=== PATIENT | female | born 1960 | race Caucasian/White ===

== ENCOUNTER 2020-03-10 09:09 | Outpatient (REF) | payer OTHER, SELFPAY ==
--- NOTE | 2020-03-10 | XR_ITS ---
EXAMINATION: XR CHEST 2 VIEWS CLINICAL INFORMATION: Question right pleural effusion or pneumothorax. COMPARISON: Prior chest radiographs, most recently 02/09/2020. TECHNIQUE: Frontal and lateral views of the chest were obtained. FINDINGS: The heart, great vessels, pulmonary vasculature and mediastinum are normal. The lungs show no focal infiltrate or pneumothorax. There is persistent moderate to marked right mid and lower lung field scar/subsegmental atelectasis, and very mild lateral left base linear scar/subsegmental atelectasis is seen. There is a very small right pleural effusion. No left pleural effusion is seen. There is no acute osseous abnormality. IMPRESSION: 1. A very small right pleural effusion is seen. 2. There is right mid and bilateral lower lung field platelike scar/subsegmental atelectasis. This is a similar in extent to prior on the right and is newly seen on the left. 3. No pneumothorax is presently seen.
== END 2020-03-10 09:10 | disposition home or self-care (01) ==
LOC: HO.XRAY 09:09
PROVIDERS: PCP Internal Medicine; Visit Provider Surgery
DX: Z48.813 Encounter for surgical aftercare following surgery on the respiratory system (principal); J90 Pleural effusion, not elsewhere classified; J93.9 Pneumothorax, unspecified; Z87.891 Personal history of nicotine dependence
CPT/HCPCS: 71046; 99211

== ENCOUNTER 2020-04-04 07:39 | Outpatient (REF) | payer OTHER, SELFPAY ==
--- NOTE | 2020-04-04 | PFT_ITS ---
Forced vital capacity normal. FEV1 moderately reduced. CVC69-90 is markedly reduced. MVV moderately reduced. Postbronchodilator therapy, there has been slight improvement in FEV1, but significant improvement in [id number] and MVV are noted. Total lung capacity and residual volume normal. Diffusion capacity is markedly reduced. CONCLUSION: Moderately severe obstructive airway disorder. Minimal improvement after bronchodilator therapy is noted. Diffusion capacity is decreased somewhat out of proportion to the other values and this may be due to pulmonary emphysema, possible pulmonary vascular disease, or interstitial lung disease. Clinical correlation recommended. MD JASMYNE Price/MODL / [id number]
== END 2020-04-04 07:40 | disposition home or self-care (01) ==
LOC: HO.RESP 07:39
PROVIDERS: Visit Provider Hospitalist
DX: J98.4 Other disorders of lung (principal)
CPT/HCPCS: 94060; 94727; 94729

== ENCOUNTER → 2020-04-14 15:17 | Outpatient (BNVA) | payer OTHER, SELFPAY | PROVIDERS: PCP Internal Medicine; Visit Provider Hospitalist | DX: Z76.89 Persons encountering health services in other specified circumstances (principal) ==

== ENCOUNTER 2020-05-05 09:03 | Outpatient (REF) | payer OTHER, SELFPAY ==
--- NOTE | 2020-05-05 09:35 | XR_ITS ---
EXAMINATION: XR CHEST CLINICAL INFORMATION: Pleurisy. COMPARISON: 03/10/2020 chest radiographs. TECHNIQUE: 2 views of the chest were obtained. FINDINGS: Mild bibasilar linear markings are seen without significant change. There is minimal blunting of the costophrenic angles. The lungs otherwise clear. The heart and mediastinal structures are unremarkable. XR/XR chest 2V IMPRESSION: Mild bibasilar linear atelectasis versus scarring without significant change. Minimal blunting of the costophrenic angles is not safely changed as well likely represents pleural scarring without significant change. No acute cardiopulmonary process.
[2020-05-05 10:13] LABS: Hematocrit 35.2 % (37-47); Imm Gran Abs Auto 0.01 X10*3/uL (0.00-0.03); Imm Gran Pct Auto 0.3 % (0.0-0.4); MANUAL DIFF FLAG SCAN; Mean Platelet Volume 11.6 fL (9.4-12.3); PLT CLUMP 1; SCAN SMEAR FLAG 1
[2020-05-05 10:15] LABS: Basophils Percent Auto 0.5 % (0-2); Eosinophils Absolute Auto 0.1 X10*3/uL (0.0-0.4); Eosinophils Percent Auto 2.1 % (0-4); Lymphocytes Absolute Auto 1.1 X10*3/uL (1.2-4.9); Lymphocytes Percent Auto 28.7 % (20-40); Mean Corpuscular HGB Conc 34.1 g/dl (31.0-35.0); Mean Corpuscular Hemoglobin 34.8 pg (27.0-33.0); Monocytes Absolute Auto 0.4 X10*3/uL (0.1-1.2); Monocytes Percent Auto 11.1 % (2-11); Neutrophils Absolute Auto 2.2 X10*3/uL (2.0-8.3); Neutrophils Percent Auto 57.3 % (45-73); Platelet Count 141 X10*3/uL (160-400); Red Blood Count 3.45 X10*6/uL (4.20-5.50); Red Cell Distribution Width 13.5 % (11.0-16.0); White Blood Count 3.8 X10*3/uL (4.8-10.8)
[2020-05-05 10:42] LABS: SLIDE REVIEW VERIFIED
[2020-05-05 11:15] LABS: Erythrocyte Sedimentation Rate 4 MM/HR (0-20)
[2020-05-07 14:32] LABS: Anti Nuclear Antibody Screen NEGATIVE (NEGATIVE)
[2020-05-08 15:11] LABS: Cyclic Citrullinated Peptide <16 UNITS
[2020-05-09 11:56] LABS: Immunoglobulin G Subclass 1 750 mg/dL (382-929); Immunoglobulin G Subclass 2 205 mg/dL (241-700); Immunoglobulin G Subclass 3 29 mg/dL (22-178); Immunoglobulin G Subclass 4 33.3 mg/dL (4-86); Immunoglobulin G Total 1130 mg/dL (600-1540)
[2020-05-11 04:52] LABS: Angiotensin Converting Enzyme 29 U/L (9-67)
== END 2020-05-05 09:04 | disposition home or self-care (01) ==
LOC: HO.LAB 09:03
PROVIDERS: PCP Internal Medicine; Visit Provider Hospitalist
DX: R09.1 Pleurisy (principal)
CPT/HCPCS: 36415; 71046; 82164; 82784; 85025; 85652; 86038; 86039; 86200; U0003

== ENCOUNTER 2020-06-27 15:04 | Outpatient (REF) | payer OTHER, SELFPAY ==
--- NOTE | 2020-06-27 15:06 | CT_ITS ---
EXAMINATION: CT CHEST WITHOUT CONTRAST CLINICAL INFORMATION: Pleurisy COMPARISON: Previous chest x-rays most recent April 2020 TECHNIQUE: Multidetector volumetric CT imaging of the chest was done. Axial MIP volume rendering provided. Sagittal and coronal reformatted images were obtained. This CT examination was performed using dose optimization techniques as appropriate, variously including the following: *Automated exposure control *Adjustment of mA and/or kV according to patient size (this includes techniques or standardized protocols for targeted exams where dose is matched to indication/reason for exam; i.e. extremities or head) *Use of iterative reconstruction technique DLP: 149 mGy-cm FINDINGS: LUNGS: There are innumerable small 1 to 2 mm semisolid or groundglass attenuation upper lobe nodules. These have a peribronchial distribution and may be related to airways disease or respiratory bronchiolitis if the patient is a smoker. There is mild biapical pleural and parenchymal scarring. There is a 2 mm right upper lobe nodule axial image 180 series 5. There is a 4 mm peripheral or subpleural left upper lobe nodule adjacent to the mediastinum is aortic arch axial image 208 series 5. There is a 2 mm lingular nodule axial image 359 series 5. There is a 4 mm peripheral left lower lobe nodule axial image 534 series 5. There is a 2 mm peripheral or subpleural left lower lobe nodule axial image 516 series 5. There is a 2 mm probably calcified left lower lobe nodule axial image 500 series 5. There is a 2 mm peripheral right lower lobe nodule axial image 460 series 5. There is scarring or subsegmental atelectasis in the right lower lobe. MEDIASTINUM: The thyroid gland is unremarkable. There are no enlarged hilar or mediastinal lymph nodes. The heart is slightly enlarged. Particular, the left atrium appears enlarged. There is mild coronary artery calcification. There is no pericardial PLEURA: There is no pleural effusion. No pleural mass or thickening. AXILLA: No lymphadenopathy. UPPER ABDOMEN: There is a 1 cm lesion exophytic to the upper pole of the left kidney. This is not compatible with a simple cyst. Hounsfield units without contrast measure 23 axial image 62 series 3. This uncertain whether this represents a complex cyst or solid lesion. OSSEOUS STRUCTURES: There are degenerative changes of the spine. There is slight cortical thickening or periosteal reaction of the right anterior lateral eighth and ninth ribs questionable for changes related to trauma. CT/CT chest wo con IMPRESSION: No pleural effusion or pleural thickening. Slight cortical thickening of the adjacent right anterior eighth and ninth ribs questionable for changes related to trauma. This could be further evaluated with bone scan if clinically indicated. Small pulmonary nodules, largest measuring 4 mm in the left upper and lower lobe. Innumerable small heterogeneous or semisolid upper lobe nodules, question representing respiratory bronchiolitis or airways disease. Enlarged heart. In particular, the left atrium. This could be better evaluated with echocardiogram. 1 cm exophytic lesion in the upper pole of the left kidney not compatible with a simple cyst. It is uncertain whether this represents a complex cyst or solid lesion. Follow-up renal ultrasound recommended.
== END 2020-06-27 15:05 | disposition home or self-care (01) ==
LOC: HO.CT 15:04
PROVIDERS: Visit Provider Hospitalist
DX: R09.1 Pleurisy (principal); R91.8 Other nonspecific abnormal finding of lung field
CPT/HCPCS: 71250

== ENCOUNTER → 2020-07-14 15:37 | Outpatient (BNVA) | payer OTHER, SELFPAY | PROVIDERS: PCP Internal Medicine; Visit Provider Hospitalist ==

== ENCOUNTER 2020-08-09 07:36 | Outpatient (REF) | payer OTHER, SELFPAY ==
--- NOTE | ~2020-08-09 | US_ITS ---
EXAMINATION: US ABDOMEN COMPLETE CLINICAL INFORMATION: This orders of kidney and ureter. COMPARISON: None. TECHNIQUE: Real-time imaging of the abdominal viscera. FINDINGS: PANCREAS: Normal. ABDOMINAL AORTA: The proximal, mid, and distal segments are normal in caliber. INFERIOR VENA CAVA: Visualized portions are normal. LIVER: The liver is mildly enlarged. The liver contour is slightly lobulated. Parenchymal echogenicity is normal. There is a small 5 x 5 x 4 mm left hepatic lobe cyst with small septation. No additional cyst or solid mass seen. There is trace free fluid in the left lobe. No intrahepatic ductal dilatation seen. GALLBLADDER: There is echogenic nonmobile sludge and echogenic stones in the fundus. There is a echogenic stone in the wall of the gallbladder, likely calcification. There are nonmobile nonechogenic lesion along the inner gallbladder wall, likely adenomyomatosis. COMMON BILE DUCT: Normal in caliber measuring 0.19, 0.6 cm in diameter. RIGHT KIDNEY: Normal. No hydronephrosis. No renal calculi or focal parenchymal lesions. The kidney measures 10.8 cm in maximum dimension. LEFT KIDNEY: There is anechoic cyst in the upper pole measuring 1.5 x 1.2 x 1.0 cm and a midpole cyst measuring 0.5 x 0.3 x 0.3 cm. No hydronephrosis. No renal calculi or focal parenchymal lesions. The kidney measures 11.8 cm in maximum dimension. SPLEEN: The spleen is enlarged and measures 13.3 cm cm in maximum dimension. FREE FLUID: None. US/US abdomen complete IMPRESSION: Echogenic sludge, gallstones and adenomyomatosis. There is a nonmobile echogenic calcification or impacted stone. No pericholecystic fluid collection. Left kidney 2 cysts. Mild hepatosplenomegaly.
== END 2020-08-09 07:37 | disposition home or self-care (01) ==
LOC: HO.US 07:36
PROVIDERS: Visit Provider Hospitalist
DX: R10.9 Unspecified abdominal pain (principal); N28.9 Disorder of kidney and ureter, unspecified
CPT/HCPCS: 76700

== ENCOUNTER → 2020-11-17 15:12 | Outpatient (BNVA) | payer OTHER, SELFPAY | PROVIDERS: PCP Internal Medicine; Visit Provider Hospitalist ==

== ENCOUNTER 2020-12-15 14:51 | Outpatient (REF) | payer OTHER, SELFPAY ==
[2020-12-15 16:03] LABS: MANUAL DIFF FLAG NO
[2020-12-15 16:06] LABS: Basophils Percent Auto 0.4 % (0-2); Eosinophils Absolute Auto 0.1 X10*3/uL (0.0-0.4); Eosinophils Percent Auto 1.1 % (0-4); Hematocrit 38.5 % (37-47); Hemoglobin 13.2 g/dl (12.0-16.0); Imm Gran Abs Auto 0.02 X10*3/uL (0.00-0.03); Imm Gran Pct Auto 0.4 % (0.0-0.4); Lymphocytes Absolute Auto 1.3 X10*3/uL (1.2-4.9); Lymphocytes Percent Auto 22.9 % (20-40); Mean Corpuscular HGB Conc 34.3 g/dl (31.0-35.0); Mean Corpuscular Hemoglobin 32.1 pg (27.0-33.0); Mean Corpuscular Volume 93.7 fL (80-98); Mean Platelet Volume 10.8 fL (9.4-12.3); Monocytes Absolute Auto 0.8 X10*3/uL (0.1-1.2); Monocytes Percent Auto 14.3 % (2-11); Neutrophils Absolute Auto 3.4 X10*3/uL (2.0-8.3); Neutrophils Percent Auto 60.9 % (45-73); Platelet Count 191 X10*3/uL (160-400); Red Blood Count 4.11 X10*6/uL (4.20-5.50); Red Cell Distribution Width 12.6 % (11.0-16.0); White Blood Count 5.5 X10*3/uL (4.8-10.8)
[2020-12-15 16:20] LABS: Anion Gap 14 (12-20); Blood Urea Nitrogen 13 mg/dL (9-16); Calcium 9.9 mg/dL (8.4-10.2); Carbon Dioxide 27 mmol/L (22-29); Chloride 96 mmol/L (96-108); Estimated Glomerular Filt Rate > 60; Glucose Random 97 mg/dL (60-115); Sodium 133 mmol/L (135-145)
[2020-12-15 16:25] LABS: Troponin-I High Sensitivity < 3.5 ng/L (<3.5-17.0)
[2020-12-15 17:13] LABS: D Dimer < 200 NG/ML
[2020-12-15 17:37] LABS: Erythrocyte Sedimentation Rate 4 MM/HR (0-20)
== END 2020-12-15 14:52 | disposition home or self-care (01) ==
LOC: HO.LAB 14:51
PROVIDERS: PCP Internal Medicine; Visit Provider Hospitalist
DX: J41.0 Simple chronic bronchitis (principal); R06.00 Dyspnea, unspecified; R09.1 Pleurisy; R91.8 Other nonspecific abnormal finding of lung field; R07.81 Pleurodynia
CPT/HCPCS: 36415; 80048; 84484; 85025; 85379; 85652

== ENCOUNTER 2020-12-19 09:34 | Emergency (ER) | payer OTHER, SELFPAY ==
--- NOTE | ~2020-12-19 | XR_ITS ---
EXAMINATION: XR CHEST CLINICAL INFORMATION: Chest pain COMPARISON: CT chest 06/27/2020, chest radiographs 05/05/2020, 03/10/2020. TECHNIQUE: Portable upright AP view of the chest was obtained. FINDINGS: Lungs are clear. There is no airspace consolidation, pneumothorax, pleural reaction, or effusion. The heart is within normal size. The vascularity is normal. The hilar and mediastinal contours and visualized bony structures are unremarkable. XR/XR chest 1V IMPRESSION: Unremarkable examination.
[2020-12-19 10:11] VITALS: BP 169/76; PULSE 61; TEMP 35.7; O2SAT 98; BMI 25.4
--- NOTE | 2020-12-19 12:31 | ECG_ITS ---
Test Reason : CHEST PAIN Blood Pressure : / mmHG Vent. Rate : 059 BPM Atrial Rate : 059 BPM P-R Int : 200 ms QRS Dur : 086 ms QT Int : 412 ms P-R-T Axes : 053 002 -05 degrees QTc Int : 407 ms Sinus bradycardia Nonspecific ST and T wave abnormality Abnormal ECG No previous ECGs available Referred By: Sawyer Joseph Electronically Signed By:Devonte Taylor
--- NOTE | 2020-12-19 12:40 | ED.CHESTPAIN ---
HPI - Chest Pain General Chief Complaint: Chest Pain Stated Complaint: back & chest pressure, dizziness Time Seen by Provider: 12/19/20 12:31 Source: patient and family Mode of arrival: ambulatory Limitations: no limitations History of Present Illness HPI narrative: 60 years old female former smoker diagnosed with COPD, patient follows Dr. Young ([employer] business development officer), patient also underwent Davinci right-sided decortication of the right lung by Dr. Hackett. Patient always feel pressure in the mid chest and her upper back has been evaluated by Dr. Young for her symptoms thought to be secondary to COPD, patient currently is on prednisone. Patient went to work today when she felt dizziness and lightheadedness with a her usual feeling of mid chest pressure and upper back pressure. Reportedly patient during her last evaluation by the [employer] business development officer patient was hypoxic with exertion patient was offered supplemental oxygen to use at home but patient declined supplemental oxygen supply. Related Data Home Medications Medication Instructions Recorded Confirmed acetaminophen 500 mg tablet 1,000 mg PO Q6H 03/04/20 12/15/20 atenolol 50 mg-chlorthalidone 25 1 tab PO DAILY 03/04/20 12/15/20 mg tablet fluoxetine 10 mg tablet 10 mg PO DAILY 03/04/20 12/15/20 sennosides 8.6 mg tablet 17.2 mg PO BEDTIME PRN 03/04/20 12/15/20 Previous Rx's Medication Instructions Recorded gabapentin 300 mg capsule 300 mg PO BEDTIME 30 Days #30 cap 07/14/20 prednisone 20 mg tablet 20 mg PO DAILY 10 Days #15 tab 11/17/20 bupropion HCl 75 mg tablet 150 mg PO BID 30 Days #120 tab 11/21/20 fluticasone fur. 100 mcg-umeclid 1 inh INHALATION DAILY 30 Days #60 12/14/20 62.5 mcg-vilant 25 mcg ea inhalat.powder doxycycline hyclate 100 mg capsule 100 mg PO BID 10 Days #20 cap 12/15/20 prednisone 20 mg tablet 20 mg PO DAILY 10 Days #15 tab 12/15/20 Allergies Allergy/AdvReac Type Severity Reaction Status Date / Time No Known Allergies Allergy Verified 12/17/20 23:24 Review of Systems Review of Systems: All other systems are reviewed and are negative Constitutional: Reports as per HPI and Reports no additional constitutional complaints Eyes: Reports as per HPI and Reports no additional eye complaints Reports system reviewed and no additional complaints, except as documented Cardiovascular: Reports as per HPI and Reports no additional cardiovascular complaints Respiratory: Reports as per HPI and Reports no additional respiratory complaints Gastrointestinal: Reports as per HPI and Reports no additional gastrointestinal complaints Genitourinary: Reports no additional female genitourinary complaints Musculoskeletal: Reports no additional musculoskeletal complaints Skin/Breast: Reports system reviewed and no additional complaints, except as docu Psychiatric: Reports no additional psychiatric complaints Endocrine: Reports no additional endocrine complaints Hematologic/Lymphatic: Reports no additional hematologic/lymphatic complaints Allergic/Immunologic: Reports no additional allergic/immunologic complaints Reports system reviewed and no additional complaints, except as documented and Reports Abnormal speech present [facility] Past Medical History Medical History Abdominal discomfort Cardiomegaly COPD (chronic obstructive pulmonary disease) Dyspnea Kidney lesion Pleuritic chest pain Pleuritis Pulmonary nodules Family History Family History Sister Lung cancer Ovarian cancer Father Heart disease Social History Social History Cigarette Packs Per Day: 0.5 Cigarettes Per Day: 10.0 Years Smoked: 45 Advance Directives: No Advance Directives Information Provided: No Physical Exam Vital Signs: Vital Signs: Last Vital Signs Temp 96.2 F L 12/19/20 10:11 Pulse 64 12/19/20 14:00 Resp 18 12/19/20 13:53 BP 130/75 12/19/20 14:00 Pulse Ox 98 12/19/20 13:53 Body Mass Index 25.4 Vital signs have been reviewed as appeared to be correct. Blood pressure normal. Heart rate normal. Respiration rate normal. Temperature normal. Oxygen saturation normal. Appearance: Alert. Oriented X3. No acute distress. Anxious Head: Normal external exam. Normocephalic. Atraumatic. No [place] signs noted. No raccoon eyes noted Eyes: PERRLA. EOMI. Conjunctiva and sclera normal. Eyelids normal. ENT: TM's Normal. Pharynx normal. Uvula midline. Moist mucous membranes. No trismus noted. No drooling noted. No muffled voice noted. Neck: Normal inspection. Neck supple. FROM. No adenopathy. Thyroid Normal. No meningeal signs. No neck mass noted. CVS: Normal heart rate and rhythm. Heart sound normal. No murmurs noted. Pulses normal throughout. Respiratory: No respiratory distress. Painless inspiration. Breath sounds normal. No wheezes/rales/rhonchi noted. Chest nontender. No accessory muscle usage noted or decreased air movement noted. Abdomen: Soft and nontender. Bowel sounds normal in all 4 quadrants. No distention noted. No organomegaly noted. No visible injury noted. Back: No CVA tenderness. Full range of motion noted. Skin: Skin warm and dry. Normal skin color. Normal skin turgor. No rashes/lesions/lacerations noted. Extremities: No lower extremity edema. Extremities exhibit normal range of motion. Extremities nontender. Neuro: Oriented X 3. No motor deficit. No sensory deficit. Reflexes normal. Course Course Course Narrative: Assessment and plan. 60-year-old female came in with chronic chest pressure, history of COPD, dizziness. EKG/troponin unremarkable except for nonspecific T-wave inversion, chest pain felt to be noncardiac and more than likely secondary to the chronic COPD. Patient feels better with 500 cc bolus of normal saline. Patient was instructed to go home good oral hydration, and consider supplemental oxygen that was recommended by Dr. Young. MDM - Chest Pain Lab Data Attestation: I reviewed the patient's lab results. Result diagrams: 12/19/20 12:43 12/19/20 12:43 Labs: Lab Results 12/19/20 12/19/20 12/19/20 Range/Units 12:43 12:43 12:43 WBC 5.2 (4.8-10.8) X10*3/uL RBC 4.14 L (4.20-5.50) X10*6/uL Hgb 13.4 (12.0-16.0) g/dl Hct 38.9 (37-47) % MCV 94.0 (80-98) fL MCH 32.4 (27.0-33.0) pg MCHC 34.4 (31.0-35.0) g/dl RDW 12.6 (11.0-16.0) % Plt Count 194 (160-400) X10*3/uL MPV 10.1 (9.4-12.3) fL Immature Gran % (Auto) 0.6 H (0.0-0.4) % Neut % (Auto) 77.1 H (45-73) % Lymph % (Auto) 16.9 L (20-40) % [place] % (Auto) 5.2 (2-11) % Eos % (Auto) 0.0 (0-4) % Baso % (Auto) 0.2 (0-2) % Lymph # (Auto) 0.9 L (1.2-4.9) X10*3/uL [place] # (Auto) 0.3 (0.1-1.2) X10*3/uL Eos # (Auto) 0.0 (0.0-0.4) X10*3/uL Baso # (Auto) 0.0 (0.0-0.2) X10*3/uL Abs Immat Gran (auto) 0.03 (0.00-0.03) X10*3/uL Absolute Neuts (auto) 4.0 (2.0-8.3) X10*3/uL Absolute Nucleated RBC 0.000 (0.0-0.012) X10*3/uL Nucleated RBC % (auto) 0.0 (0.0-0.2) /100WBC Sodium 133 L (135-145) mmol/L Potassium 3.9 (3.3-5.1) mmol/L Chloride 95 L (96-108) mmol/L Carbon Dioxide 27 (22-29) mmol/L Anion Gap 15 (12-20) BUN 12 (9-16) mg/dL Creatinine 0.70 (0.5-1.4) mg/dL Estim Creat Clear Calc 93.1 Estimated GFR > 60 Random Glucose 135 H D (60-115) mg/dL Calcium 10.0 (8.4-10.2) mg/dL Total Bilirubin 0.8 (0.0-1.0) mg/dL Direct Bilirubin 0.3 (0.0-0.5) mg/dL AST 19 (5-31) U/L ALT 17 (0-31) U/L Alkaline Phosphatase 62 (39-117) U/L Troponin I High Sens < 3.5 (<3.5-17.0) ng/L B-Natriuretic Peptide (<100) pg/mL Total Protein 7.6 (6.5-8.0) g/dL Albumin 4.5 (3.5-5.0) g/dL Lipase 16 (8-78) U/L 12/19/20 Range/Units 12:43 WBC (4.8-10.8) X10*3/uL RBC (4.20-5.50) X10*6/uL Hgb (12.0-16.0) g/dl Hct (37-47) % MCV (80-98) fL MCH (27.0-33.0) pg MCHC (31.0-35.0) g/dl RDW (11.0-16.0) % Plt Count (160-400) X10*3/uL MPV (9.4-12.3) fL Immature Gran % (Auto) (0.0-0.4) % Neut % (Auto) (45-73) % Lymph % (Auto) (20-40) % [place] % (Auto) (2-11) % Eos % (Auto) (0-4) % Baso % (Auto) (0-2) % Lymph # (Auto) (1.2-4.9) X10*3/uL [place] # (Auto) (0.1-1.2) X10*3/uL Eos # (Auto) (0.0-0.4) X10*3/uL Baso # (Auto) (0.0-0.2) X10*3/uL Abs Immat Gran (auto) (0.00-0.03) X10*3/uL Absolute Neuts (auto) (2.0-8.3) X10*3/uL Absolute Nucleated RBC (0.0-0.012) X10*3/uL Nucleated RBC % (auto) (0.0-0.2) /100WBC Sodium (135-145) mmol/L Potassium (3.3-5.1) mmol/L Chloride (96-108) mmol/L Carbon Dioxide (22-29) mmol/L Anion Gap (12-20) BUN (9-16) mg/dL Creatinine (0.5-1.4) mg/dL Estim Creat Clear Calc Estimated GFR Random Glucose (60-115) mg/dL Calcium (8.4-10.2) mg/dL Total Bilirubin (0.0-1.0) mg/dL Direct Bilirubin (0.0-0.5) mg/dL AST (5-31) U/L ALT (0-31) U/L Alkaline Phosphatase (39-117) U/L Troponin I High Sens (<3.5-17.0) ng/L B-Natriuretic Peptide 267 H (<100) pg/mL Total Protein (6.5-8.0) g/dL Albumin (3.5-5.0) g/dL Lipase (8-78) U/L Imaging Data Chest x-ray: Radiologist's impression: Unremarkable examination. ECG Data ECG #1: Interpretation: Sinus bradycardia at 59 beats per minutes, normal interval, nonspecific T-wave changes in V2, V3, no old EKG to compare. Discharge Plan Discharge Clinical Impression: Dizziness Patient Disposition: Home, Self-Care Instructions: Dizziness (ED) Prescriptions: No Action bupropion HCl 75 mg tablet 150 mg PO BID 30 Days Qty: 120 RF: 11 Trelegy Ellipta 100-62.5-25 mcg blister with device 1 inh inhalation DAILY 30 Days Qty: 60 RF: 11 fluoxetine 10 mg tablet 10 mg PO DAILY RF: 0 atenolol-chlorthalidone 50-25 mg tablet 1 tab PO DAILY RF: 0 acetaminophen 500 mg tablet 1,000 mg PO Q6H RF: 0 sennosides 8.6 mg tablet 17.2 mg PO BEDTIME PRN (Reason: constipation) RF: 0 gabapentin 300 mg capsule 300 mg PO BEDTIME 30 Days Qty: 30 RF: 6 prednisone 20 mg tablet 20 mg PO DAILY 10 Days Qty: 15 RF: 0 doxycycline hyclate 100 mg capsule 100 mg PO BID 10 Days Qty: 20 RF: 0 prednisone 20 mg tablet 20 mg PO DAILY 10 Days Qty: 15 RF: 0 Referrals: Carmine Young MD [Physician] - 2 days Roger Borja MD [Primary Care Provider] - 2 days Stand Alone Forms: Work/School Release
[2020-12-19 12:50] LABS: MANUAL DIFF FLAG NO
[2020-12-19 12:51] LABS: Basophils Percent Auto 0.2 % (0-2); Hematocrit 38.9 % (37-47); Hemoglobin 13.4 g/dl (12.0-16.0); Imm Gran Abs Auto 0.03 X10*3/uL (0.00-0.03); Imm Gran Pct Auto 0.6 % (0.0-0.4); Lymphocytes Absolute Auto 0.9 X10*3/uL (1.2-4.9); Lymphocytes Percent Auto 16.9 % (20-40); Mean Corpuscular HGB Conc 34.4 g/dl (31.0-35.0); Mean Corpuscular Hemoglobin 32.4 pg (27.0-33.0); Mean Platelet Volume 10.1 fL (9.4-12.3); Monocytes Absolute Auto 0.3 X10*3/uL (0.1-1.2); Monocytes Percent Auto 5.2 % (2-11); Neutrophils Percent Auto 77.1 % (45-73); Platelet Count 194 X10*3/uL (160-400); Red Blood Count 4.14 X10*6/uL (4.20-5.50); Red Cell Distribution Width 12.6 % (11.0-16.0); White Blood Count 5.2 X10*3/uL (4.8-10.8)
[2020-12-19 13:17] LABS: Alanine Aminotransferase 17 U/L (0-31); Albumin Level 4.5 g/dL (3.5-5.0); Alkaline Phosphatase 62 U/L (39-117); Anion Gap 15 (12-20); Aspartate Amino Transferase 19 U/L (5-31); Bilirubin Direct 0.3 mg/dL (0.0-0.5); Bilirubin Total 0.8 mg/dL (0.0-1.0); Blood Urea Nitrogen 12 mg/dL (9-16); Carbon Dioxide 27 mmol/L (22-29); Chloride 95 mmol/L (96-108); Creatinine Clr Calc Pharmacy 93.1; Estimated Glomerular Filt Rate > 60; Glucose Random 135 mg/dL (60-115); Lipase 16 U/L (8-78); Potassium 3.9 mmol/L (3.3-5.1); Sodium 133 mmol/L (135-145); Total Protein 7.6 g/dL (6.5-8.0)
[2020-12-19 13:18] LABS: B Type Natriuretic Peptide 267 pg/mL (<100); Troponin-I High Sensitivity < 3.5 ng/L (<3.5-17.0)
[2020-12-19] MEDS: 0.9 % Sodium Chloride 1,000 ML 500 ML IVCONT (13:51)
[2020-12-19 13:53] VITALS: BP 139/76; PULSE 57; RESP 18; O2SAT 98
[2020-12-19 13:57] VITALS: BP 134/63; PULSE 55
[2020-12-19 13:59] VITALS: BP 128/73; PULSE 60
[2020-12-19 14:00] VITALS: BP 130/75; PULSE 64
== END 2020-12-19 14:56 | disposition home or self-care (01) ==
PROVIDERS: Emergency Provider Emergency Medicine; PCP Internal Medicine
DX: R42 Dizziness and giddiness (principal); J44.9 Chronic obstructive pulmonary disease, unspecified; Z79.52 Long term (current) use of systemic steroids; Z79.899 Other long term (current) drug therapy; Z87.891 Personal history of nicotine dependence
CPT/HCPCS: 36415; 71045; 80048; 80076; 83690; 83880; 84484; 85025; 93005; 96360; 96361; 99284

== ENCOUNTER → 2020-12-20 08:53 | Outpatient (BNVA) | payer OTHER, SELFPAY | PROVIDERS: PCP Internal Medicine; Visit Provider Hospitalist ==

== ENCOUNTER 2020-12-20 15:25 | Outpatient (REF) | payer OTHER, SELFPAY ==
--- NOTE | ~2020-12-20 | CT_ITS ---
EXAMINATION: CT ANGIOGRAM OF THE CHEST WITH AND WITHOUT CONTRAST (CT PULMONARY ANGIOGRAM FOR PE) CLINICAL INFORMATION: Reason for Exam R07.81 - Pleurodynia COMPARISON: Previous chest x-ray most recent from yesterday previous chest CT June 2020 TECHNIQUE: Prior to contrast administration, noncontrast localization images were obtained. Subsequently, multidetector volumetric imaging was performed from the thoracic inlet to below the diaphragms following the administration of 65 mL Omnipaque 350 intravenous contrast. No contrast reaction reported Sagittal, coronal, and MIP oblique sagittal reformatted images were obtained on the CT workstation, uploaded to PACS, and reviewed. This CT examination was performed using dose optimization techniques as appropriate, variously including the following: *Automated exposure control *Adjustment of mA and/or kV according to patient size (this includes techniques or standardized protocols for targeted exams where dose is matched to indication/reason for exam; i.e. extremities or head) *Use of iterative reconstruction technique Total exam dose-length product 132 mGy-cm FINDINGS: QUALITY OF STUDY/CONTRAST BOLUS: Satisfactory. PULMONARY ARTERIES: No central or segmental pulmonary emboli. THORACIC AORTA: No aneurysm or dissection. LUNG: The 2 mm right upper lobe nodule axial 206 series 11 is stable. The 4 mm left upper lobe nodule adjacent to the mediastinum/aortic arch is no longer seen. The 2 mm lingular nodule axial image 366 series 11 is stable. The 3 mm peripheral or subpleural left lower lobe nodule axial image 5:30 series 11 is stable. The 4 mm peripheral or subpleural left lower lobe nodule axial image 537 is stable. The 2 mm peripheral right lower lobe nodule axial image 42 series 11 is stable. There is scarring or chronic subsegmental atelectasis seen in both lower lobes and inferior segment of the lingula that is stable. PLEURA: No pleural effusion or pneumothorax. MEDIASTINUM: The heart is slightly enlarged. There is very mild coronary artery calcification. There is no pericardial effusion. The thoracic aorta is normal in caliber. There are no enlarged lymph nodes are No evidence of septal bowing or right heart strain. CHEST WALL/AXILLA: No axillary or internal mammary lymphadenopathy. OSSEOUS STRUCTURES: No acute or suspicious osseous abnormality. There are degenerative changes of the spine. UPPER ABDOMEN: There is a low-attenuation lesion exophytic to the upper pole of the left kidney measuring 1 cm axial image 64 series 5 that is stable. No reflux of contrast into the hepatic veins to suggest elevated right heart pressures. CT/CT angio chest PE protocol IMPRESSION: No evidence of pulmonary embolism. The previously identified 4 mm left upper lobe nodule is no longer seen. Otherwise small pulmonary nodules are stable compared to June 2020 exam. Slightly enlarged heart. VTE:
[2020-12-20] MEDS: iohexoL 350 MG/ML 100 ML INFUS..BTL 65 ML IV (15:56)
== END 2020-12-20 15:26 | disposition home or self-care (01) ==
LOC: HO.CT 15:25
PROVIDERS: PCP Internal Medicine; Visit Provider Hospitalist
DX: R07.81 Pleurodynia (principal); J41.0 Simple chronic bronchitis; J96.00 Acute respiratory failure, unspecified whether with hypoxia or hypercapnia
CPT/HCPCS: 71275; Q9967

== ENCOUNTER → 2021-01-05 15:27 | Outpatient (BNVA) | payer OTHER, SELFPAY | PROVIDERS: PCP Internal Medicine; Visit Provider Hospitalist | DX: J44.9 Chronic obstructive pulmonary disease, unspecified (principal) ==

== ENCOUNTER 2021-02-09 15:29 | Outpatient (REF) | payer OTHER, SELFPAY ==
--- NOTE | 2021-02-09 | PFT_ITS ---
Forced vital capacity slightly decreased. FEV1 and MVV are moderately decreased. [id number] is markedly decreased. Post bronchodilator therapy, there is no significant change. Total lung capacity and residual volume normal. Diffusion capacity moderately decreased. CONCLUSION: Moderately severe obstructive airway disorder. No significant response to bronchodilator therapy. MD JASMYNE Price/MODL / [id number]
== END 2021-02-09 15:30 | disposition home or self-care (01) ==
LOC: HO.RESP 15:29
PROVIDERS: PCP Internal Medicine; Visit Provider Hospitalist
DX: J44.9 Chronic obstructive pulmonary disease, unspecified (principal); R06.00 Dyspnea, unspecified
CPT/HCPCS: 94060; 94727; 94729

== ENCOUNTER → 2021-02-16 15:21 | Outpatient (BNVA) | payer OTHER, SELFPAY | PROVIDERS: PCP Internal Medicine; Visit Provider Hospitalist | DX: J44.9 Chronic obstructive pulmonary disease, unspecified (principal) ==

== ENCOUNTER 2021-06-04 12:40 | Outpatient (REF) | payer OTHER, SELFPAY ==
--- NOTE | ~2021-06-04 | CT_ITS ---
EXAMINATION: CT CHEST WITHOUT CONTRAST CLINICAL INFORMATION: Small pulmonary nodules identified on CT angiography chest 12/20/2020. COMPARISON: CT angiography chest 12/20/2020, CT chest 06/27/2020 TECHNIQUE: Multidetector volumetric CT imaging of the chest was done. Axial MIP volume rendering provided. Sagittal and coronal reformatted images were obtained. This CT examination was performed using dose optimization techniques as appropriate, variously including the following: *Automated exposure control *Adjustment of mA and/or kV according to patient size (this includes techniques or standardized protocols for targeted exams where dose is matched to indication/reason for exam; i.e. extremities or head) *Use of iterative reconstruction technique DLP: 149 mGy-cm FINDINGS: Lungs: *Focal reticular nodular opacities within the lingula over an approximate 2 cm diameter region medially (series 7 image 270. Findings are new compared with 12/20/2020. *Minimal number of scattered subpleural reticular nodular opacities which are overwhelmingly likely to be benign including findings noted within the left upper pulmonary lobe, image 114 series 7, right upper lobe image 138 series 7. *Unchanged 3 mm subpleural nodule within the right upper pulmonary lobe series 7 image 205 compared with 06/27/2020 *Unchanged 3 mm posterior left base subpleural nodule compared with 06/27/2020 (series 7 image 492). *Unchanged peripheral left lung base subpleural 4 mm noncalcified nodule series 7 image 499 stable compared with 06/27/2020. Pleura: No pleural effusions or pneumothoraces. Mediastinum: Partially visualized mild coronary artery calcific atherosclerosis. Mild prominence of the left atrium. No pericardial thickening or fluid collections. Normal thoracic aorta caliber. No mediastinal lymphadenopathy. CHEST WALL: No axillary lymphadenopathy. Visualized abdominal structures: The adrenal glands are partially included in the image [id number] and are normal in appearance. Osseous structures: No suspicious abnormalities. Mild multilevel anterior endplate osteophytosis of the thoracic spine. CT/CT chest wo con IMPRESSION: *Newly identified 2 cm diameter region of focal reticular nodular opacities within the lingula of the left lung. Findings may represent a small focus of inflammatory or postinflammatory changes. *Small number of newly identified punctate noncalcified subpleural nodules as detailed above which are overwhelmingly likely to be benign. Additional subpleural punctate noncalcified pulmonary nodules are unchanged compared with 06/27/2020. Per the Fleischner Society guidelines on pulmonary nodules, the newly identified nodules may require no additional imaging follow-up in low risk patients and in high risk patients may be followed with optional CT in 12 months. *Partially visualized mild coronary artery calcific atherosclerosis.
== END 2021-06-04 12:41 | disposition home or self-care (01) ==
LOC: HO.CT 12:40
PROVIDERS: PCP Internal Medicine; Visit Provider Hospitalist
DX: R91.8 Other nonspecific abnormal finding of lung field (principal)
CPT/HCPCS: 71250

== ENCOUNTER → 2021-06-15 14:56 | Outpatient (BNVA) | payer OTHER, SELFPAY | PROVIDERS: PCP Internal Medicine; Visit Provider Hospitalist | DX: J44.9 Chronic obstructive pulmonary disease, unspecified (principal) ==

== ENCOUNTER → 2021-10-05 15:07 | Outpatient (BNVA) | payer BC, SELFPAY | PROVIDERS: PCP Internal Medicine; Visit Provider Hospitalist | DX: J44.9 Chronic obstructive pulmonary disease, unspecified (principal); I51.89 Other ill-defined heart diseases ==

== ENCOUNTER 2022-05-14 16:09 | Outpatient (REF) | payer BC, SELFPAY ==
--- NOTE | ~2022-05-14 | CT_ITS ---
EXAMINATION: CT CHEST WITHOUT CONTRAST CLINICAL INFORMATION: Abnormal finding of lungs. COMPARISON: CT chest 06/04/2021. TECHNIQUE: Multidetector volumetric CT imaging of the chest was done. Axial MIP volume rendering provided. Sagittal and coronal reformatted images were obtained. This CT examination was performed using dose optimization techniques as appropriate, variously including the following: *Automated exposure control *Adjustment of mA and/or kV according to patient size (this includes techniques or standardized protocols for targeted exams where dose is matched to indication/reason for exam; i.e. extremities or head) *Use of iterative reconstruction technique DLP: 174 mGy-cm FINDINGS: GROUP FITNESS INSTRUCTOR: Hyperinflated lungs. LUNGS: The lungs are well-expanded and clear of acute pneumonic process. There are several subpleural nodules. A 2 mm nodule right upper lobe apex image 95/7; 2 mm nodule right upper lobe axial image 167/7; 1 mm nodules within the left major fissure axial image 241/7; 2 mm nodule pleural-based right upper lobe 239/7; 3 mm cavitary nodule 347/7; 1 mm calcified nodule subpleural based right middle lobe axial image 391/7; 2 mm nodule right lower lobe anterior segment image 430/7; 5 mm nodule left CP angle axial image 507/7; pleural-based 3 mm nodule left lower lobe axial image 501/7. There is platelike atelectasis right lower lobe. Previously described reticular nodular opacities in the lingula have resolved. MEDIASTINUM: The thyroid lobes are symmetric and normal. The central trachea and the bronchi are widely patent. Heart size and the great vessels are normal caliber. No abnormal-size mediastinal or hilar lymph nodes seen. No pericardial effusion. CORONARY ARTERY CALCIFICATION: There are mild coronary artery calcifications. PLEURA: There is no pleural effusion. No pleural mass or thickening. AXILLA: No lymphadenopathy. UPPER ABDOMEN: Visualized liver, spleen, pancreas and bilateral adrenal glands unremarkable. OSSEOUS STRUCTURES: No aggressive lytic or sclerotic process seen. There is mild ventral spondylosis. CT/CT chest wo IV con IMPRESSION: 1. Multiple bilateral pulmonary nodules, the largest measuring 5 mm in the left CP angle. 2. No abnormal mediastinal or axillary lymphadenopathy seen. 3. Mild coronary artery calcifications. 4. No acute consolidation or mass. There is platelike atelectasis right lower lobe. 5. Depending on patient risk factors, a follow up can be performed in 18 months for pulmonary nodules. Fleischner guidelines were followed.
== END 2022-05-14 16:10 | disposition home or self-care (01) ==
LOC: HO.CT 16:09
PROVIDERS: PCP Internal Medicine; Visit Provider Hospitalist
DX: R91.8 Other nonspecific abnormal finding of lung field (principal)
CPT/HCPCS: 71250

== ENCOUNTER 2022-08-12 15:42 | Outpatient (REF) | payer BC, SELFPAY ==
--- NOTE | 2022-08-12 07:41 | PFT_ITS ---
INDICATION: COPD. SPIROMETRY: FEV1 to FVC 64% with an FEV1 of 1.87 L, which is 61% predicted. FVC of 2.94 L, which is 74% predicted. No significant response to bronchodilators noted. Maximum voluntary ventilation 74% predicted. LUNGS VOLUMES: Total lung capacity 88% predicted. DIFFUSION CAPACITY: DLCO 60% predicted. COMPARISONS: PFTs in 2020. INTERPRETATION: There is an obstructive ventilatory defect consistent with moderate COPD. Significant small airway disease also noted. There is a mild decrease in maximum voluntary ventilation secondary to likely deconditioning. Lung volumes are within normal limits and the patient does have a mild to moderate diffusion impairment secondary to likely COPD. When compared to 2020, there is a trend improvement of the FVC. No significant change in the FEV1, a trend decrease in the total lung capacity, and a trend increase in her diffusion capacity. Clinical correlation warranted. MD DAVID Alexandre/MODL / [id number]
== END 2022-08-12 15:43 | disposition home or self-care (01) ==
LOC: HO.RESP 15:42
PROVIDERS: Visit Provider Hospitalist
DX: J41.0 Simple chronic bronchitis (principal)
CPT/HCPCS: 94060; 94727; 94729

== ENCOUNTER → 2022-08-23 15:45 | Outpatient (BNVA) | payer BC, SELFPAY | PROVIDERS: PCP Internal Medicine; Visit Provider Hospitalist | DX: J44.9 Chronic obstructive pulmonary disease, unspecified (principal); I51.89 Other ill-defined heart diseases; M79.89 Other specified soft tissue disorders ==

== ENCOUNTER 2023-05-05 15:35 | Outpatient (AMB) | payer BC, SELFPAY ==
[2023-05-05 15:41] VITALS: BP 122/70; PULSE 80; O2SAT 97; BMI 26.3
--- NOTE | 2023-05-05 15:41 | A.OFFVIS_ITS ---
Intake Vital Signs 05/05/23 15:41 Height 5 ft 10 in Weight 183 lb BMI 26.3 BP 122/70 Blood Pressure Location Lt brachial Position Sitting Pulse 80 Pulse Source Pulse Oximeter Pulse Oximetry (%) 97 Oxygen Delivery Method Room Air Intake Visit Reasons: asthma Dry Cleaner Helper Required: No Allergies No Known Allergies Allergy (Verified 05/05/23 15:44) HPI HPI Comments History of Present Illness Details The patient is a 62-year-old woman active smoker who presents with several months of increasing weight loss, anorexia, fatigue in addition to pleuritic chest pain. Patient states that she was initially evaluated with an x- ray which was noted to be abnormal with pleural effusion and subsequently had a CT scan of the chest. The CT scan was read as bilateral pleural effusions with pulmonary nodules and atelectasis. 08/23/2022 The patient is here for a pulm onary follow up visit. Overall she is doing better from arespiratory stand point. She does continue to letha her respiratory therapy. She has npt required any oxygen therapy. Her recent PFTs are consistent with her COPD with a FEV1 of 61% (moderate COPD). Also, underwent a CT chest 05/2022 with stable pulmonary nodules. She will be undergoing a THR soon. The patient does have moderate risk for perioperative pulmonary complications, which include, atelectasis, hypoxia, pneumonia and prolonged mechanical ventilation, She is medically optimized from a respiratory standpoint at this time and may consent for surgery. 05/05/2023 the patient is here for a pulmonary follow-up visit. The patient overall has been doing well. She does complaint of productive cough. Moderate severity. Seems to be persistent now for several months. She does have a diagnosis of COPD. Likely component of chronic bronchitis. She has been on the respiratory therapy with good adherence. She did return the oxygen that she is not using it anymore. His surgery went well. She is scheduled to have a repeat CT scan in May 28 332 follow-up for pulmonary nodules. In the meantime will start azithromycin 3 times a week for chronic bronchitis. She will use that for a month and then stopped. If she notices her symptoms reoccur we can always consider checking an EKG and seeing if she is able to stand for little bit longer. I am hopeful though that after a month of therapy she is better she does need to be on it longer than that. The patient also needs to start pulmonary rehabilitation. She is still working so hard for her to do that. We talked about different exercises that she can perform to strengthen her breathing such as her Wendi and also I will request an Acapella valve to help with the chronic bronchitis. I also gave her information about online pulmonary rehabilitation that she should definitely look into. [facility] Medical History (Updated 08/23/22 @ 15:56 by Carmine Young MD) Limb swelling Personal history of nicotine dependence Diastolic dysfunction Acute respiratory failure Pleuritic chest pain COPD (chronic obstructive pulmonary disease) Dyspnea Cardiomegaly Kidney lesion Abdominal discomfort Pulmonary nodules Pleuritis Surgical History (Updated 10/04/21 @ 12:34 by Clare Mosley PA-C) History of thoracentesis Family History Sister Lung cancer Ovarian cancer Father Heart disease (Updated 06/15/21 @ 15:17 by Kacie Collado Cassandra) Patient Tobacco Use Status: Former Tobacco user Tobacco use type: Cigarette Cigarette Packs Per Day: 0.5 Cigarettes Per Day: 10.0 Years Smoked: 45 Review of Systems Const Denies night sweats ENT Denies change in voice, Denies lip swelling, Denies mouth pain, Reports nasal congestion, Reports nasal discharge and Denies tongue swelling Card Denies chest pain and Reports dyspnea on exertion Resp Reports chest congestion, Reports cough and Reports dyspnea on exertion GI Reports abdominal pain Musc Reports no additional complaints, Reports as per HPI, Reports arthralgias, Reports joint swelling and Reports limited range of motion Neuro Denies Neuro-related abnormal movements Psych Denies no additional complaints López/Lymph Denies easy bleeding and Denies lymphadenopathy Aller/Immun Denies lip swelling and Denies tongue swelling Physical Exam Vital Signs: Last Vital Signs Pulse 80 05/05/23 15:41 BP 122/70 05/05/23 15:41 Pulse Ox 97 05/05/23 15:41 Oxygen Delivery Method Room Air 05/05/23 15:41 BMI result Body Mass Index 26.3 Vital signs have been reviewed as appeared to be correct. Blood pressure normal. Heart rate normal. Respiration rate normal. Temperature normal. Oxygen saturation normal. Const General: alert Neck Neck: Yes normal visual inspection, Yes full ROM and Yes no lymphadenopathy Chest Chest palpation & inspection: normal inspection of the chest Resp Effort & Inspection: Actively coughing Quality: productive Auscultation: no rales, no rhonchi, no wheezes and diminished lung sounds Cardio Rate: regular rate Rhythm: regular rhythm Heart sounds: S1 normal heart sound present and S2 normal heart sound present GI Palpation (GI): Soft to palpation and nontender Auscultation: normal bowel sounds Skin General skin exam: rashes and/or lesions noted Assessment & Plan Assessment & Plan (1) COPD (chronic obstructive pulmonary disease): Code(s): J44.9 - Chronic obstructive pulmonary disease, unspecified Qualifiers: COPD type: chronic bronchitis Chronic bronchitis type: simple Qualified Code(s): J41.0 - Simple chronic bronchitis (2) Dyspnea: Code(s): R06.00 - Dyspnea, unspecified Qualifiers: Dyspnea type: dyspnea on exertion Qualified Code(s): R06.00 - Dyspnea, unspecified (3) Pulmonary nodules: Code(s): R91.8 - Other nonspecific abnormal finding of lung field (4) Diastolic dysfunction: Code(s): I51.89 - Other ill-defined heart diseases Plan No oxygen use continue Breztri repeat CT chest 05/2023 start azithromycin MWF x 1 month requesting acapella for CPT recommend Harmonica exercises on line pulmonary rehab follow-up in 6 months Medications: New azithromycin Take 1 tablet on Friday/Friday/Friday 250 mg PO 3XW 28 days 12 tabs 0RF K21.9 - Gastro-esophageal reflux disease without esophagitis Coding Level of Care Code Est Pt Level 4 (73018) Diagnoses Simple chronic bronchitis J41.0 COPD type: chronic bronchitis Chronic bronchitis type: simple Dyspnea on exertion R06.00 Dyspnea type: dyspnea on exertion Pulmonary nodules R91.8 Diastolic dysfunction I51.89 Time Spent (min) 17
== END 2023-05-05 16:03 | disposition home or self-care (01) ==
PROVIDERS: PCP Internal Medicine; Visit Provider Hospitalist
DX: J41.0 Simple chronic bronchitis (principal); R06.00 Dyspnea, unspecified; R91.8 Other nonspecific abnormal finding of lung field; I51.89 Other ill-defined heart diseases
CPT/HCPCS: 99214

== ENCOUNTER → 2023-05-05 15:35 | Outpatient (BNVA) | payer BC, SELFPAY | PROVIDERS: PCP Internal Medicine; Visit Provider Hospitalist ==

== ENCOUNTER 2023-11-07 15:10 | Outpatient (AMB) | payer MEDICARE, SELFPAY ==
--- NOTE | 2023-11-07 15:13 | MHC.OFFVIS ---
Vital Signs 11/07/23 15:14 Height 5 ft 10 in Weight 190 lb BMI 27.3 Pulse 74 Pulse Source Pulse Oximeter Pulse Oximetry (%) 97 Oxygen Delivery Method Room Air Intake Visit Reasons: asthma Crop Nutrition Scientist Required: No Allergies No Known Allergies Allergy (Verified 11/07/23 15:15) HPI Comments Details: The patient is a 63-year-old woman active smoker who presents with several months of increasing weight loss, anorexia, fatigue in addition to pleuritic chest pain. Patient states that she was initially evaluated with an x-ray which was noted to be abnormal with pleural effusion and subsequently had a CT scan of the chest. The CT scan was read as bilateral pleural effusions with pulmonary nodules and atelectasis. 08/23/2022 The patient is here for a pulmonary follow up visit. Overall she is doing better from arespiratory stand point. She does continue to letha her respiratory therapy. She has npt required any oxygen therapy. Her recent PFTs are consistent with her COPD with a FEV1 of 61% (moderate COPD). Also, underwent a CT chest 05/2022 with stable pulmonary nodules. She will be undergoing a THR soon. The patient does have moderate risk for perioperative pulmonary complications, which include, atelectasis, hypoxia, pneumonia and prolonged mechanical ventilation, She is medically optimized from a respiratory standpoint at this time and may consent for surgery. 05/05/2023 the patient is here for a pulmonary follow-up visit. The patient overall has been doing well. She does complaint of productive cough. Moderate severity. Seems to be persistent now for several months. She does have a diagnosis of COPD. Likely component of chronic bronchitis. She has been on the respiratory therapy with good adherence. She did return the oxygen that she is not using it anymore. His surgery went well. She is scheduled to have a repeat CT scan in May 28 332 follow-up for pulmonary nodules. In the meantime will start azithromycin 3 times a week for chronic bronchitis. She will use that for a month and then stopped. If she notices her symptoms reoccur we can always consider checking an EKG and seeing if she is able to stand for little bit longer. I am hopeful though that after a month of therapy she is better she does need to be on it longer than that. The patient also needs to start pulmonary rehabilitation. She is still working so hard for her to do that. We talked about different exercises that she can perform to strengthen her breathing such as her Wendi and also I will request an Acapella valve to help with the chronic bronchitis. I also gave her information about online pulmonary rehabilitation that she should definitely look into. 11/07/2023 the patient is here for a pulmonary follow-up visit. Overall she is doing fairly well. She continues to use the Trelegy inhaler. Does have dyspnea on exertion. Qyme-qe-tulhzena severity. We did talk about the importance of exercise. She needs to monitor closely weight. In the meantime her last CT scan of the chest was back in 2021 demonstrating pulmonary nodules which appear to be stable in size. The patient is a former smoker. She quit about 6 years ago. She has a significant pack-year history of smoking and she does qualify for the lung cancer screening program. Therefore refer her this time. [facility] Medical History (Updated 11/07/23 @ 15:38 by Carmine Young MD) Smoking history Limb swelling Personal history of nicotine dependence Diastolic dysfunction Acute respiratory failure Pleuritic chest pain COPD (chronic obstructive pulmonary disease) Dyspnea Cardiomegaly Kidney lesion Abdominal discomfort Pulmonary nodules Pleuritis Surgical History (Updated 10/04/21 @ 12:34 by Clare Mosley PA-C) History of thoracentesis Family History Sister Lung cancer Ovarian cancer Father Heart disease Social History (Updated 06/15/21 @ 15:17 by PETE Camacho) Patient Tobacco Use Status: Former Tobacco user Tobacco use type: Cigarette Cigarette Packs Per Day: 0.5 Cigarettes Per Day: 10.0 Years Smoked: 45 Review of Systems Const Denies night sweats ENT Denies change in voice, Denies lip swelling, Denies mouth pain, Reports nasal congestion, Reports nasal discharge and Denies tongue swelling Card Denies chest pain and Reports dyspnea on exertion Resp Reports chest congestion, Reports cough and Reports dyspnea on exertion GI Denies abdominal pain Musc Reports no additional complaints, Reports as per HPI, Reports arthralgias, Reports joint swelling and Reports limited range of motion Neuro Denies Neuro-related abnormal movements Psych Denies no additional complaints López/Lymph Denies easy bleeding and Denies lymphadenopathy Aller/Immun Denies lip swelling and Denies tongue swelling Physical Exam Vital Signs: Last Vital Signs Pulse 74 11/07/23 15:14 Pulse Ox 97 11/07/23 15:14 Oxygen Delivery Method Room Air 11/07/23 15:14 BMI result Body Mass Index 27.3 Const General: alert Neck Neck: Yes normal visual inspection, Yes full ROM and Yes no lymphadenopathy Chest Chest palpation & inspection: normal inspection of the chest Resp Effort & Inspection: Actively coughing Quality: productive Auscultation: no rales, no rhonchi, no wheezes and diminished lung sounds Cardio Rate: regular rate Rhythm: regular rhythm Heart sounds: S1 normal heart sound present and S2 normal heart sound present GI Palpation (GI): Soft to palpation and nontender Auscultation: normal bowel sounds Skin General skin exam: rashes and/or lesions noted Assessment & Plan Assessment & Plan (1) COPD (chronic obstructive pulmonary disease): Code(s): J44.9 - Chronic obstructive pulmonary disease, unspecified Category: Medical Qualifiers: COPD type: chronic bronchitis Chronic bronchitis type: simple Qualified Code(s): J41.0 - Simple chronic bronchitis (2) Dyspnea: Code(s): R06.00 - Dyspnea, unspecified Category: Medical Qualifiers: Dyspnea type: dyspnea on exertion Qualified Code(s): R06.00 - Dyspnea, unspecified (3) Pulmonary nodules: Code(s): R91.8 - Other nonspecific abnormal finding of lung field Category: Medical (4) Diastolic dysfunction: Code(s): I51.89 - Other ill-defined heart diseases Category: Medical (5) Smoking history: Code(s): Z87.891 - Personal history of nicotine dependence Category: Social Hx Plan No oxygen use continue Trelegy 200 LDCT program referral requesting terry for CPT Start exercise routine follow-up in 8-10 months Orders: Referrals Lung Cancer Screening Referral Z87.891 - Personal history of nicotine dependence Medications: Refilled [id number] 200-62.5-25 mcg (Trelegy Ellipta) 1 inh inhalation DAILY 30 days 60 ea 12RF albuterol sulfate 90 mcg/actuation 2 inhalations inhalation Q6H 30 days PRN 18 grams 12RF shortness of breath or wheezing J44.9 - Chronic obstructive pulmonary disease, unspecified Coding Level of Care Code Est Pt Level 4 (40519) Diagnoses Simple chronic bronchitis J41.0 COPD type: chronic bronchitis Chronic bronchitis type: simple Dyspnea on exertion R06.00 Dyspnea type: dyspnea on exertion Pulmonary nodules R91.8 Diastolic dysfunction I51.89 Smoking history Z87.891 Time Spent (min) 16
[2023-11-07 15:14] VITALS: PULSE 74; O2SAT 97; BMI 27.3
== END 2023-11-07 15:46 | disposition home or self-care (01) ==
PROVIDERS: PCP Internal Medicine; Visit Provider Hospitalist
DX: J41.0 Simple chronic bronchitis (principal); R06.00 Dyspnea, unspecified; R91.8 Other nonspecific abnormal finding of lung field; I51.89 Other ill-defined heart diseases; Z87.891 Personal history of nicotine dependence
CPT/HCPCS: 99214

== ENCOUNTER → 2023-11-07 15:10 | Outpatient (BNVA) | payer MEDICARE, SELFPAY | PROVIDERS: PCP Internal Medicine; Visit Provider Hospitalist | DX: J41.0 Simple chronic bronchitis (principal); R06.00 Dyspnea, unspecified; R91.8 Other nonspecific abnormal finding of lung field; I51.89 Other ill-defined heart diseases; Z87.891 Personal history of nicotine dependence | CPT/HCPCS: 99212 ==

== ENCOUNTER 2023-12-05 16:15 | Outpatient (REF) | payer MEDICARE, SELFPAY ==
--- NOTE | ~2023-12-05 | CT_ITS ---
EXAMINATION: CT CHEST WITHOUT CONTRAST CLINICAL INFORMATION: Follow-up pulmonary nodules. COMPARISON: Prior chest CT examinations, most recently 05/14/2022. TECHNIQUE: Multidetector volumetric CT imaging of the chest was done. Axial MIP volume rendering provided. Sagittal and coronal reformatted images were obtained. This CT examination was performed using dose optimization techniques as appropriate, variously including the following: *Automated exposure control *Adjustment of mA and/or kV according to patient size (this includes techniques or standardized protocols for targeted exams where dose is matched to indication/reason for exam; i.e. 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 LUNGS: There is biapical pleural and parenchymal scarring. Anteriorly within the right middle lobe (5:301 and 302), there are 5 mm and 4 mm subpleural nodules. Laterally within the right middle lobe (5:336), a 5 mm noncalcified nodule is seen. At the posterior left costophrenic angle (5:521 and 523), there are 4 mm and 5 mm noncalcified subpleural nodules. There are few further bilateral scattered 1-2 mm noncalcified and calcified nodules. Overall these nodules are stable from 06/04/2021. No new nodule, mass, infiltrate or groundglass opacity is seen. There is mild bibasilar dependent atelectasis. There is no generalized small airway thickening. The central airways appear patent. MEDIASTINUM: The thyroid is unremarkable. There is no thoracic aortic aneurysm aneurysm. There are mild to moderate atherosclerotic calcifications of the great vessel origins and thoracic aorta. No mediastinal or hilar lymphadenopathy is seen. CORONARY ARTERY CALCIFICATION: Very mild. PLEURA: There is no pleural effusion. No pleural mass or thickening. AXILLA: No lymphadenopathy. UPPER ABDOMEN: Unremarkable. OSSEOUS STRUCTURES: There is multi-level thoracic degenerative disc disease and endplate arthropathy. No acute or aggressive osseous abnormality is seen. CT/CT chest wo IV con IMPRESSION: There are benign, stable calcified and noncalcified lung nodules. No new nodule, mass, infiltrate or groundglass opacity is seen. There is no thoracic lymphadenopathy or pleural effusion. No aggressive osseous lesion is seen. Fleischner guidelines were followed.
== END 2023-12-05 16:16 | disposition home or self-care (01) ==
LOC: HO.CT 16:15
PROVIDERS: PCP Internal Medicine; Visit Provider Hospitalist
DX: R91.8 Other nonspecific abnormal finding of lung field (principal)
CPT/HCPCS: 71250

== ENCOUNTER 2024-07-06 15:09 | Outpatient (AMB) | payer MEDICARE, SELFPAY ==
[2024-07-06 15:13] VITALS: BP 142/80; PULSE 85; O2SAT 98; BMI 28.3
--- NOTE | 2024-07-06 15:13 | MHC.OFFVIS ---
Vital Signs 07/06/24 15:13 Height 5 ft 10 in Weight 197 lb 5.019 oz BMI 28.3 BP 142/80 H Blood Pressure Location Rt brachial Position Sitting Pulse 85 Pulse Source Pulse Oximeter Pulse Oximetry (%) 98 Oxygen Delivery Method Room Air Intake Visit Reasons: COPD Allergies No Known Allergies Allergy (Verified 07/06/24 15:16) HPI Comments Details: The patient is a 63-year-old woman active smoker who presents with several months of increasing weight loss, anorexia, fatigue in addition to pleuritic chest pain. Patient states that she was initially evaluated with an x-ray which was noted to be abnormal with pleural effusion and subsequently had a CT scan of the chest. The CT scan was read as bilateral pleural effusions with pulmonary nodules and atelectasis. 08/23/2022 The patient is here for a pulmonary follow up visit. Overall she is doing better from arespiratory stand point. She does continue to letha her respiratory therapy. She has npt required any oxygen therapy. Her recent PFTs are consistent with her COPD with a FEV1 of 61% (moderate COPD). Also, underwent a CT chest 05/2022 with stable pulmonary nodules. She will be undergoing a THR soon. The patient does have moderate risk for perioperative pulmonary complications, which include, atelectasis, hypoxia, pneumonia and prolonged mechanical ventilation, She is medically optimized from a respiratory standpoint at this time and may consent for surgery. 05/05/2023 the patient is here for a pulmonary follow-up visit. The patient overall has been doing well. She does complaint of productive cough. Moderate severity. Seems to be persistent now for several months. She does have a diagnosis of COPD. Likely component of chronic bronchitis. She has been on the respiratory therapy with good adherence. She did return the oxygen that she is not using it anymore. His surgery went well. She is scheduled to have a repeat CT scan in May 28 332 follow-up for pulmonary nodules. In the meantime will start azithromycin 3 times a week for chronic bronchitis. She will use that for a month and then stopped. If she notices her symptoms reoccur we can always consider checking an EKG and seeing if she is able to stand for little bit longer. I am hopeful though that after a month of therapy she is better she does need to be on it longer than that. The patient also needs to start pulmonary rehabilitation. She is still working so hard for her to do that. We talked about different exercises that she can perform to strengthen her breathing such as her Wendi and also I will request an Acapella valve to help with the chronic bronchitis. I also gave her information about online pulmonary rehabilitation that she should definitely look into. 11/07/2023 the patient is here for a pulmonary follow-up visit. Overall she is doing fairly well. She continues to use the Trelegy inhaler. Does have dyspnea on exertion. [id number] severity. We did talk about the importance of exercise. She needs to monitor closely weight. In the meantime her last CT scan of the chest was back in 2021 demonstrating pulmonary nodules which appear to be stable in size. The patient is a former smoker. She quit about 6 years ago. She has a significant pack-year history of smoking and she does qualify for the lung cancer screening program. Therefore refer her this time. 07/06/2024 the patient is here for a pulmonary follow-up visit. Overall the patient has been doing well. She continues her respiratory therapy with good effect. She has been on Wixela. She has been active. She needs to work on her weight management. She has plans to start exercising more regularly. She is participating in the lung cancer screening program. Her last CT scan was reassuring. Should continue with a yearly CT scan at this time and her next CT scan being 11/26/2024. Otherwise patient is without any other complaints will follow-up in a year's time. [facility] Medical History (Updated 11/07/23 @ 15:38 by Carmine Young MD) Smoking history Limb swelling Personal history of nicotine dependence Diastolic dysfunction Acute respiratory failure Pleuritic chest pain COPD (chronic obstructive pulmonary disease) Dyspnea Cardiomegaly Kidney lesion Abdominal discomfort Pulmonary nodules Pleuritis Surgical History (Updated 10/04/21 @ 12:34 by Clare Mosley PA-C) History of thoracentesis Family History Sister Lung cancer Ovarian cancer Father Heart disease Social History Patient Tobacco Use Status: Former Tobacco user Tobacco use type: Cigarette Cigarette Packs Per Day: 0.5 Cigarettes Per Day: 10.0 Years Smoked: 45 Review of Systems Const Denies night sweats ENT Denies change in voice, Denies lip swelling, Denies mouth pain, Reports nasal congestion, Reports nasal discharge and Denies tongue swelling Card Denies chest pain and Reports dyspnea on exertion Resp Reports chest congestion, Reports cough and Reports dyspnea on exertion GI Denies abdominal pain Musc Reports no additional complaints, Reports as per HPI, Reports arthralgias, Reports joint swelling and Reports limited range of motion Neuro Denies Neuro-related abnormal movements Psych Denies no additional complaints López/Lymph Denies easy bleeding and Denies lymphadenopathy Aller/Immun Denies lip swelling and Denies tongue swelling Physical Exam Vital Signs: Last Vital Signs Pulse 85 07/06/24 15:13 BP 142/80 H 07/06/24 15:13 Pulse Ox 98 07/06/24 15:13 Oxygen Delivery Method Room Air 07/06/24 15:13 BMI result Body Mass Index 28.3 Const General: alert Neck Neck: Yes normal visual inspection, Yes full ROM and Yes no lymphadenopathy Chest Chest palpation & inspection: normal inspection of the chest Resp Effort & Inspection: Actively coughing Quality: productive Auscultation: no rales, no rhonchi, no wheezes and diminished lung sounds Cardio Rate: regular rate Rhythm: regular rhythm Heart sounds: S1 normal heart sound present and S2 normal heart sound present GI Palpation (GI): Soft to palpation and nontender Auscultation: normal bowel sounds Skin General skin exam: rashes and/or lesions noted Assessment & Plan Assessment & Plan (1) COPD (chronic obstructive pulmonary disease): Code(s): J44.9 - Chronic obstructive pulmonary disease, unspecified Category: Medical Qualifiers: COPD type: chronic bronchitis Chronic bronchitis type: simple Qualified Code(s): J41.0 - Simple chronic bronchitis (2) Dyspnea: Code(s): R06.00 - Dyspnea, unspecified Category: Medical Qualifiers: Dyspnea type: dyspnea on exertion Qualified Code(s): R06.00 - Dyspnea, unspecified (3) Pulmonary nodules: Code(s): R91.8 - Other nonspecific abnormal finding of lung field Category: Medical (4) Diastolic dysfunction: Code(s): I51.89 - Other ill-defined heart diseases Category: Medical (5) Smoking history: Code(s): Z87.891 - Personal history of nicotine dependence Category: Social Hx Plan [facility] ac[facility]ella for CPT Start exercise routine follow-up in 10-12 months Coding Level of Care Code Est Pt Level 4 (37520) Diagnoses Simple chronic bronchitis J41.0 COPD type: chronic bronchitis Chronic bronchitis type: simple Dyspnea on exertion R06.00 Dyspnea type: dyspnea on exertion Pulmonary nodules R91.8 Diastolic dysfunction I51.89 Smoking history Z87.891 Time Spent (min) 16
--- OUTSIDE RECORDS SUMMARY | 2024-07-06 16:07 | XMS_ITS | Clinical Summary ---
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 Name Role Phone Unavailable Primary Care Provider Unavailabl e Social History Tobacco Use Types Packs/Day Years Used Date Smoking Tobacco: Never Assessed Sex and Gender Information Value Date Recorded Sex Assigned at Not on file Gender Identity Not on file Sexual Orientation Not on file Plan of Treatment Health Maintenance Due Date Last Done Comments Breast Cancer Screening 1960 DTaP,Tdap,and Td Vaccines (1 - Tdap) 1977 Cervical Cancer Screening: P ap Smear 08/31/1979 Zoster Vaccines (1 of 2) 2008 Pneumococcal Vaccine: 65+ Ye ars (1 of 1 - PCV) 08/31/2023 COVID-19 Vaccine ( - 2023-2 5 season) 2024 Influenza Vaccine (#1) 2024 RSV Immunization Patients 60 + Years Old (1 - 1-dose 75+ series) 2033 HIB Vaccines Aged Out No longer eligi ble based on patient's age to complete this topic HPV Vaccines Aged Out No longer eligi ble based on patient's age to complete this topic Hepatitis A Vaccines Aged Out No long er eligible based on patient's age to complete this topic Hepatitis B Vaccines Aged Out No long er eligible based on patient's age to complete this topic IPV Vaccines Aged Out No longer eligi ble based on patient's age to complete this topic MMR Vaccines Aged Out No longer eligi ble based on patient's age to complete this topic Meningococcal ACWY Vaccine Aged Out N o longer eligible based on patient's age to complete this topic Pneumococcal Vaccine: Pediat rics (0 to 5 Years) and At-Risk Patients (6 to 64 Years) Aged Out No longer eligible b ased on patient's age to complete this topic RSV Immunization Patients Un roberto 20 months Aged Out No longer eligible b ased on patient's age to complete this topic Varicella Vaccines Aged Out No longer eligible based on patient's age to complete this topic Advance Directives Documents on File Type Date 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
== END 2024-07-06 15:34 | disposition home or self-care (01) ==
PROVIDERS: PCP Internal Medicine; Visit Provider Hospitalist
DX: J41.0 Simple chronic bronchitis (principal); R06.00 Dyspnea, unspecified; R91.8 Other nonspecific abnormal finding of lung field; I51.89 Other ill-defined heart diseases; Z87.891 Personal history of nicotine dependence
CPT/HCPCS: 99214

== ENCOUNTER → 2024-07-06 15:09 | Outpatient (BNVA) | payer MEDICARE, SELFPAY | PROVIDERS: PCP Internal Medicine; Visit Provider Hospitalist | DX: J41.0 Simple chronic bronchitis (principal); R06.00 Dyspnea, unspecified; R91.8 Other nonspecific abnormal finding of lung field; I51.89 Other ill-defined heart diseases; Z87.891 Personal history of nicotine dependence | CPT/HCPCS: 99212 ==

== ENCOUNTER 2025-04-22 09:37 | Outpatient (AMB) | payer MEDICARE, SELFPAY ==
--- NOTE | 2025-04-22 07:59 | A.OFFVIS_ITS ---
Intake Visit Reasons: Former Smoker Allergies No Known Allergies Allergy (Verified 07/06/24 15:16) HPI HPI Former Smoker: Details: Initial visit for this 64yo former smoker with a 21PYH. Patient started smoking at age 14 for 43 years at 1/2ppd. She quit 7 year ago in 2018. . Denies marijuana use. Denies second hand smoke exposure. Denies exposure to chemicals or substances like asbestos. . Family history of lung cancer. Sister in her 50s. Personal history of cancers. Skin Cancer BCC. . Denies chest CT in last year. 4-5mm nodules in RML on 11/[address] s/p Davinci right-sided decortication with pleural biopsy -Dr. Chavez - 02/23/2020. . Denies recent travel outside the [place]. Denies recent respiratory illness or recent hospitalization for respiratory issues. History testing positive for COVID. Admits receiving COVID Vaccine. . Denies fever, chills, new/worsening cough, hemoptysis, hoarseness or dysphagia. Denies significant chest pain, significant dyspnea or unintentional weight loss. Patient Lung Cancer Screening Questionnaire reviewed with patient by provider. . Shared Decision Making Completed. Patient meets criteria. Discussed in detail with patient, the risk vs benefit of LDCT screening. Patient consents to proceed with scan. Discussed and encouraged continued smoking cessation. [facility] Medical History (Updated 04/22/25 @ 09:53 by Clare Mosley PA-C) History of pleural effusion Limb swelling Personal history of nicotine dependence Diastolic dysfunction Pleuritic chest pain COPD (chronic obstructive pulmonary disease) Dyspnea Cardiomegaly Kidney lesion Abdominal discomfort Pulmonary nodules Pleuritis Surgical History (Updated 04/22/25 @ 10:01 by Clare Mosley PA-C) History of basal cell carcinoma excision History of left hip replacement History of lung surgery History of thoracentesis Family History Sister Lung cancer Ovarian cancer Father Heart disease Social History (Updated 04/22/25 @ 09:54 by Clare Mosley PA-C) Patient Tobacco Use Status: Former Tobacco user Tobacco use type: Cigarette Years Smoked: (onset 14yo, 1/2ppd x 43yrs, 21pyh, quit 2018) Assessment & Plan Assessment & Plan (1) Personal history of nicotine dependence: Comment: (onset 14yo, 1/2ppd x 43yrs, 21pyh, quit 2018) Code(s): Z87.891 - Personal history of nicotine dependence Category: Medical Plan: - SDM visit completed today in office. - Patient meets criteria for LDCT for lung cancer screening purposes and is asymptomatic. - Smoking cessation counseling offered. Patients can always call [phone]. - Will arrange for a LDCT scan of the chest for screening purposes at [facility]. - Risks, benefits, and alternatives were discussed in detail and the patient agrees to proceed. - Risks discussed include but are not limited to: radiation exposure, anxiety during testing and while awaiting results, false negatives, false positives and possibility of additional intervention such as further imaging or surgical procedures for benign disease. - Benefits are obviously detection of lung cancer at an early stage which can lead to improved outcomes. - Discussed the importance of screening program compliance with adherence to yearly LDCT scan as scheduled - or sooner interval scans for personalized screening regimen. - Discussed follow up plan. Our office will send a letter discussing results and if needed set up phone call and office visit based on CT findings. - Patient educated on results categorization and the management decisions for suspicious findings potentially found on the screening LDCT scan. Any patient with a Lung RADS score of 3 or 4 will be reviewed by a multidisciplinary team at [facility] to form a plan of action in regards to scan findings. - If further work up is warranted for a suspicious lung finding this will be followed by the Lung Cancer Screening program in conjunction with the Thoracic Surgery Department at [facility]. - A copy of the office note and LDCT will be sent to the patient's PCP - as well as documentation on any associated further plans of care. - Incidental findings on LDCT are the PCP's responsibility. These findings are indicated with an S finding on the LDCT Assessment. A note discussing the findings will be sent to the PCP who is then responsible for further management. - All questions answered.? Coding Level of Care Code Lung Cancer Screening [id number] Diagnoses Personal history of nicotine dependence Z87.891
--- OUTSIDE RECORDS SUMMARY | 2025-04-22 10:43 | XMS_ITS | Clinical Summary ---
Author Organization [facility] ity Address [address] [place] [address] Care Team Providers Care Mender Knit Goods Name Role Phone Unavailable Primary Care Provider Unavailabl e Social History Tobacco Use Types Packs/Day Years Used Date Smoking Tobacco: Never Assessed Comments Unknown Sex and Gender Information Value Date Recorded Sex Assigned at Not on file Legal Sex Female 10:03 AM EST Gender Identity Not on file Sexual Orientation Not on file Plan of Treatment Health Maintenance Due Date Last Done Comments Breast Cancer Screening 1960 DTaP,Tdap,and Td Vaccines (1 - Tdap) 1977 Pneumococcal Vaccine: 50+ Ye ars (1 of 1 - PCV) 2008 Zoster Vaccines (1 of 2) 2008 Depression Screening 06/09/2024 COVID-19 Vaccine (1 - 2024-2 6 season) 2025 Influenza Vaccine (#1) 2025 RSV Immunization Adult Patie nts (1 - 1-dose 75+ series) 2033 HIB [...] patient's age to complete this topic Meningococcal B Vaccine Aged Out No l onger eligible based on patient's age to complete this topic RSV Immunization Patients Un roberto 20 months Aged Out No longer eligible b ased on patient's age to complete this topic Varicella Vaccines Aged Out No longer eligible based on patient's age to complete this topic Advance Directives Documents on File Type Date 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
== END 2025-04-22 10:26 | disposition home or self-care (01) ==
LOC: HO.HPS 09:38
PROVIDERS: PCP Internal Medicine; Referring Provider Hospitalist; Visit Provider Physician Assistant Medical
DX: Z87.891 Personal history of nicotine dependence (principal)
CPT/HCPCS: G0296

== ENCOUNTER 2025-04-22 10:02 | Outpatient (REF) | payer MEDICARE, SELFPAY ==
--- NOTE | ~2025-04-22 | CT_ITS ---
CLINICAL HISTORY: Z87.891 - Personal history of nicotine dependence CT lung cancer screening (LDCT) Comparison: CT/REG/SD/SR - CT CHEST WITHOUT IV CONTRAST - 12/05/23 16:29 EDT Technique: Axial CT images of the chest using low-dose technique. Referring provider counseled the patient on shared decision-making for LDCT screening. Additional counseling was provided on smoking cessation. Effective radiation dose total: DLP 55.8 mGycm, CTDIvol 1.6 mGy. Findings: Lung: The trachea and central bronchi are patent. No dense consolidation, pleural effusion or pneumothorax. Mild peripheral ground-glass opacity of the lung bases which could be atelectasis or inflammatory change. There are scattered sub 5 mm subpleural pulmonary nodules unchanged from the prior exam with a reference nodule in the left lung base measuring 3 mm image 132 series 6. No new or enlarging nodules or masses. Coronary artery calcifications: Mild Heart size is normal. No pericardial effusion or vascular dilation. No adenopathy. Decompressed esophagus. Limited upper abdomen: The spleen appears enlarged with a maximal axial dimension of 15 cm. Other: No acute osseous findings. IMPRESSION: Numerous sub 5 mm pulmonary nodules bilaterally that appear stable compared with the prior chest CT. No new or enlarging nodules or masses. Lung rads category 2 Mild basilar and peripheral ground-glass opacity which could be inflammation or early fibrosis. Attention on follow-up loops. This document has been electronically signed by: Florecita Vargas MD on 04/23/2025 10:05:43
== END 2025-04-22 10:03 | disposition home or self-care (01) ==
LOC: HO.CT 10:02
PROVIDERS: Visit Provider Physician Assistant Medical
DX: Z12.2 Encounter for screening for malignant neoplasm of respiratory organs (principal); Z87.891 Personal history of nicotine dependence
CPT/HCPCS: 71271; G0296

== ENCOUNTER → 2025-04-22 10:03 | Outpatient (BNV) | payer MEDICARE, SELFPAY | PROVIDERS: Visit Provider Radiology Diagnostic Radiology | DX: Z87.891 Personal history of nicotine dependence (principal) | CPT/HCPCS: 71271 ==